=== PATIENT | male | born 1965 | race Hispanic/Latino ===

== ENCOUNTER 2017-01-11 20:00 | Emergency (ER) | payer OTHER ==
[~2017-01-11] VITALS: Ht 175.3 cm; Wt 93.2 kg
[~2017-01-11 20:00] MED LIST: DOCU-41 PO; HYDR-3797 PO; OXYC1TAB91 PO; PROC25SU30 RC; PROM25TA14 PO; RIZA10TA23 PO; ZONI100C6 PO
[2017-01-11 20:22] VITALS: BP 125/81; PULSE 83; RESP 20; O2SAT 98
--- NOTE | 2017-01-11 22:41 | ED.REPORT ---
HPI-General Illness Date of Service Jan 11, 2017 ED Provider: Benjamín Patel MD A 51 year old male with a history of migraines and low back pain presents to the ED complaining of low back pain. The pt began experiencing right-sided low back pain while lifting at work this afternoon. The pain is a sharp, constant, 9 out of 10 pain that radiates into the outside of his right leg, and the pt has not noticed any exacerbating or relieving factors. The pt denies bowel or bladder incontinence, urinary retention, weakness, fever or abdominal pain. Nursing Notes Stated Complaint: BACK PAIN Chief Complaint: Back Pain or Injury Nursing Notes Reviewed: Yes Allergies: Coded Allergies: No Known Allergies (Verified Allergy, Unknown, 01/11/17) Scheduled Rizatriptan ODT (Maxalt CANDY DIPPER) 10 Mg Tablet 10 MG PO Q2H x 2 Zonisamide (Zonisamide) 100 Mg Capsule 200-300 MG PO DAILY Scheduled PRN Docusate Sodium (Colace) 100 Mg Capsule 100 MG PO DAILY PRN PRN For Constipation Hydroxyzine Pamoate (HydrOXYzine Pamoate) 25 Mg Capsule 25-50 MG PO Q4-6H PRN PRN For Spasm Oxycodone HCl/Acetaminophen (Endocet 10-325 mg Tablet) 1 Each Tablet 1 EACH PO Q4-6H PRN PRN For Pain Prochlorperazine Maleate (Compazine Suppository) 25 Mg Supp.rect 25 MG RC Q8 PRN PRN For Nausea/Vomiting Promethazine (Promethazine) 25 Mg Tablet 25 MG PO Q6H PRN PRN Headache General Time Seen by MD: 22:40 Chief Complaint Back pain Hx Obtained From: Patient Arrived By: Walk-in Sudden in Onset?: Yes Onset Occurred: 9 - 12 hours ago Symptom Duration: Since onset Location: : Back Quality: Painful Radiation: : Leg right Pertinent Negative: Exacerbated by nothing, Relieved by nothing Recent Healthcare: No recent doctor visit, No recent hospitalization Similar Sx Previous: Yes Past Medical History Past Medical History migraines low back pain Past Surgical History R knee repair L shoulder surgery 03/2015 Family History Noncontributory Smoking History Never Smoker Social History Alcohol Use: "Social" Drug Use: Denies drug use Other Social History: Good social support, , Lives with children Ambulatory Status Independent Review of Systems Full Review of Systems Constitutional: Denies: Chills, Fever Respiratory: Denies: Non-productive cough, Shortness of breath Cardiovascular: Denies: Chest pain GI: Denies: Abdominal pain, Diarrhea, Nausea, Vomiting Male: Denies Incontinence Musculoskeletal: Reports: Back pain, Denies: Neck pain Neurologic: Denies: Headache Complete sys rev & neg: except as marked. Physical Exam Constitutional: Well-developed, well-nourished. Not diaphoretic. Head: Normocephalic and atraumatic. Mouth/Throat: Oropharynx is clear and moist. No oropharyngeal exudate. Eyes: EOM are normal. Pupils are equal, round, and reactive to light. Neck: Supple, no tracheal deviation. Cardiovascular: Normal rate, regular rhythm. Equal and intact distal pulses throughout. Pulmonary/Chest: Effort normal and breath sounds normal. No respiratory distress. Abdominal: Soft. No distension. There is no tenderness, rebound, or guarding. Bowel sounds present. Back: No cervical, thoracic or lumbar bony tenderness to palpation. Right lower lumbar paraspinous tenderness to palpation. Musculoskeletal: Range of motion grossly intact, moving all extremities. No edema or tenderness appreciated. Neurological: AOx3. Grossly nonfocal exam. Strength and sensation intact and equal to bilateral upper and lower extremities. Skin: Warm and dry, no rashes or pallor appreciated. Psychiatric: Appropriate mood and affect. Behavior appears normal. Vital Signs Vital Signs Date Time Temp Pulse Resp B/P Pulse Ox O2 Delivery O2 Flow Rate FiO2 01/11/17 23:45 60 16 125/93 99 Room Air 01/11/17 20:22 36.2 83 20 125/81 98 Room Air Initial VS: Reviewed Re-Eval/Medical Decision Med Decision/Clinical Course In summary, 51-year-old male presenting to the ED for evaluation of back pain that started earlier today. DDx broad and includes lumbosacral strain, degenerative disc disease, cauda equina syndrome, epidural abscess, AAA, nephrolithiasis. No bowel/bladder incontinence or urinary retention, no saddle anesthesia, unremarkable exam with equal strength to bilateral lower extremities and grossly intact sensation to light touch. Afebrile, non-toxic appearing, no history of IV drug abuse. Patient denies abdominal pain and has a benign abdominal exam. No CVA tenderness or hematuria. Patient does have a history of lower back pain; current presentation seems most consistent with an acute exacerbation vs lumbosacral strain. He was lifting something earlier today, however no direct trauma to the back. Patient given Decadron as well as 30 mg of Toradol IM here in the ED with some improvement in symptoms. Given above, reasonable to discharge home w/ PCP f/u as soon as able to further discuss strategies to minimize pain and discomfort. Very careful return precautions were discussed, including to return immediately if any bowel or bladder incontinence, urinary retention, fever, or weakness. Patient agreeable to the plan as stated, no further questions. Time of Eval: 22:40 Patient Status: Condition improved Re-Evaluation/Progress Note: Pt informed of his diagnosis and the plan for discharge during the initial interview. The pt understands and agrees with the plan. All questions are addressed at this time. Counseled Regarding: Diagnosis, Need for follow-up, When/why to return to ED Discharge & Departure Primary Impression: Low back pain Chronicity: acute Back pain laterality: right Sciatica presence: unspecified whether sciatica present Qualified Code: M54.5 - Low back pain Disposition: Home Discharge Condition All VS Reviewed: Yes Condition: Stable Patient Instructions: Acute Low Back Pain (ED) Additional Instructions: Thank you for allowing us to be a part of your care. There does not appear to be an acute cause for your symptoms. Call your primary care physician to arrange a follow up appointment in the next two to three days for further evaluation. Return to the emergency department if you develop any new or worsening symptoms such as bowel or bladder incontinence, urinary retention, fever, or if there is anything else of concern to you. Referrals: Alberto Box MD (PCP) Scribe Attestation Portions of this note were transcribed by Jeff Canada. I, Dr. Patel personally performed the history, physical exam and medical decision-making; I reviewed and confirmed the accuracy of the information in the transcribed note. copies to: Alberto Box MD, William B MD Jan 11, 2017 22:41 JEFF [place] Jan 11, 2017 23:05
[2017-01-11] MEDS ORDERED: Dexamethasone 10 mg/mL Inj IM ONE (23:10)
[2017-01-11 23:45] VITALS: BP 125/93; PULSE 60; RESP 16; O2SAT 99
== END 2017-01-11 23:46 | disposition home or self-care (01) ==
LOC: SED 20:00
DX: M54.5 Low back pain (principal); Z79.891 Long term (current) use of opiate analgesic; Z98.890 Other specified postprocedural states; Z87.39 Personal history of other diseases of the musculoskeletal system and connective tissue; X50.0XXA Overexertion from strenuous movement or load, initial encounter; Y93.89 Activity, other specified; Y99.0 Civilian activity done for income or pay; Y92.9 Unspecified place or not applicable
CPT/HCPCS: 96372; 99284; J1100; J1885